=== PATIENT | female | born 1975 | race Caucasian/White ===

== ENCOUNTER 2016-08-24 06:22 | Emergency (ER) | payer MEDICAID ==
[~2016-08-24] VITALS: Ht 162.6 cm; Wt 54.4 kg
--- NOTE | 2016-08-24 06:28 | NUR ---
Patient to ER bed 8 to gown for evaluation. Side rails up. Report given to Connie MCLAIN.
[2016-08-24 06:30] VITALS: BP 127/88; PULSE 75; RESP 17; TEMP 98; O2SAT 96
--- NOTE | 2016-08-24 06:37 | NUR ---
Patient to ER C/O severe 10/10 lower back pain radiating down the left lef with numbness. Patient had a laminectomy 2 years ago, is under pain management and is seeying a newurologist. AAOx4, unlabored breathing, no signs of acute distress.
--- NOTE | 2016-08-24 06:38 | NUR ---
ELSA Ellison at bedside for evaluation.
[2016-08-24] MEDS ORDERED: HYDROmorphone 2 MG/ML VIAL IM ONE (07:00)
--- NOTE | 2016-08-24 07:05 | NUR ---
Assumed care,pt AAOx4 c/o low back pain x 2 months worsening last 2 days.Pt has no significant med hx.
[2016-08-24] MEDS ORDERED: KETOROLAC TROMETHAMINE 60 MG/2 ML VIAL IM ONE (07:15)
[2016-08-24] MEDS ORDERED: DIAZEPAM 5 MG TABLET (VALIUM) PO ONE (07:15)
--- NOTE | 2016-08-24 07:20 | NUR ---
Pt medicated. Pt tolerated well.Will reassess.
[2016-08-24 07:40] VITALS: BP 120/75; PULSE 74; RESP 16; TEMP 98; O2SAT 96
--- NOTE | 2016-08-24 07:40 | NUR ---
Patient given written and verbal discharge instructions and verbalizes understanding. ER MD discussed with patient the results and treatment provided. Given copies of tests performed in ER. Patient in stable condition. ID arm band removed. Rx of [place] given. Patient educated on pain management and to follow up with PMD. Pain Scale 3. Opportunity for questions provided and answered.
== END 2016-08-24 07:40 | disposition home or self-care (01) ==
LOC: SED 06:22
DX: M54.42 Lumbago with sciatica, left side (principal); Z98.890 Other specified postprocedural states
CPT/HCPCS: 96372; 99284; J1170; J1885

== ENCOUNTER 2018-07-12 15:21 | Emergency (ER) | payer MEDICAID ==
[~2018-07-12] VITALS: Ht 160 cm; Wt 54.4 kg
[2018-07-12 15:43] VITALS: BP_SYST 132
[2018-07-12] MEDS ORDERED: IBUPROFEN 600 MG TABLET PO ONE (16:15)
[2018-07-12] MEDS ORDERED: DEXAMETHASONE SOD PHOSPHATE 10 MG/ML VIAL IM ONE (16:15)
[2018-07-12 16:20] VITALS: BP_SYST 132
== END 2018-07-12 16:20 | disposition left against medical advice (07) ==
LOC: SED 15:21
DX: J02.8 Acute pharyngitis due to other specified organisms (principal); B97.89 Other viral agents as the cause of diseases classified elsewhere; F17.210 Nicotine dependence, cigarettes, uncomplicated
CPT/HCPCS: 87081; 99283; J1100

== ENCOUNTER 2020-10-18 09:00 | Emergency (ER) | payer MEDICAID, SELFPAY ==
[~2020-10-18] VITALS: Ht 157.5 cm; Wt 55.3 kg
[2020-10-18 09:00] VITALS: BP_SYST 131
[2020-10-18] MEDS ORDERED: DIPHENHYDRAMINE INJ 50 MG/ML VIAL IVP ONE (09:45)
[2020-10-18] MEDS ORDERED: NACL 0.9% 1,000 ML IV ONE (09:45)
[2020-10-18] MEDS ORDERED: LevALBUTEROL HCL 1.25 MG/0.5 ML *CONC.* VIAL.NEB (XOPENEX CONC.) INH ONE (09:45)
[2020-10-18 09:48] LABS: BASOPHILS % (AUTO) 0.5 % (0.0-2.0); EOSINOPHILS % (AUTO) 0.5 % (0.0-4.0); HEMOGLOBIN 12.7 g/dL (12.0-16.0); LYMPHOCYTES # (AUTO) 1.1 K/uL (1.0-5.5); LYMPHOCYTES % (AUTO) 28.6 % (20.5-51.5); MEAN CORPUSCULAR HEMOGLOBIN 31 pg (27-31); MEAN CORPUSCULAR HGB CONC 33 % (32-36); MEAN CORPUSCULAR VOLUME 91 fL (79.0-98.0); MONOCYTES # (AUTO) 0.3 K/uL (0.0-1.0); MONOCYTES % (AUTO) 7.4 % (1.7-9.3); NEUTROPHILS # (AUTO) 2.4 K/uL (1.8-7.7); PLATELET COUNT (AUTO) 199 K/uL (130-430); RED BLOOD CELL COUNT(AUTO) 4.17 MIL/uL (4.2-6.2); RED CELL DISTRIBUTION WIDTH 12.8 % (9.0-15.0); WHITE BLOOD COUNT (AUTO) 3.8 K/uL (4.8-10.8)
[2020-10-18 09:59] LABS: CALCIUM 9.5 mg/dL (8.4-11.0); CREATININE 0.63 mg/dL (0.55-1.30); POTASSIUM 3.7 mmol/L (3.5-5.1)
[2020-10-18 10:13] LABS: TOTAL BILIRUBIN 0.2 mg/dL (0.0-1.0)
[2020-10-18 10:19] LABS: INR 0.8 (0.8-1.2); PROTHROMBIN TIME < 8.9 SECS (9.5-12.5)
[2020-10-18] MEDS ORDERED: methylPREDNISolone SOD SUCC/PF 62.5 MG/ML VIAL IVP ONE (11:15)
[2020-10-18 11:59] LABS: BILIRUBIN,URINE NEGATIVE (NEGATIVE); BLOOD, URINE NEGATIVE (NEGATIVE); CLARITY/URINE CLEAR (CLEAR); COLOR,URINE YELLOW (YELLOW); GLUCOSE,URINE NEGATIVE (NEGATIVE); KETONES,URINE NEGATIVE (NEGATIVE); LEUKOCYTE ESTERASE ,URINE NEGATIVE (NEGATIVE); NITRITE, URINE NEGATIVE (NEGATIVE); PROTEIN URINE NEGATIVE (NEGATIVE); UROBILINOGEN,URINE 0.2 (0.2-1.0)
[2020-10-18] MEDS ORDERED: PRED20TA PO (12:43)
[2020-10-18] MEDS ORDERED: ALBMDI INH (12:43)
[2020-10-18 12:55] VITALS: BP_SYST 124
== END 2020-10-18 12:57 | disposition left against medical advice (07) ==
LOC: SED 09:00
DX: R06.02 Shortness of breath (principal); M79.18 Myalgia, other site; R22.1 Localized swelling, mass and lump, neck; Z20.822 Contact with and (suspected) exposure to COVID-19; Z90.710 Acquired absence of both cervix and uterus; Z79.899 Other long term (current) drug therapy
CPT/HCPCS: 36415; 71045; 80053; 81003; 85025; 85379; 85610; 85730; 87426; 93005; 94640; 96361; 96374; 96375; 99285; J1200; J2930; J7030; J7612